=== PATIENT | female | born 1980 | race Caucasian/White ===

== ENCOUNTER 2019-10-31 22:33 | Emergency (ER) | payer OTHER, SELFPAY ==
[2019-10-31 22:34] VITALS: BP 149/86; PULSE 91; RESP 15; TEMP 36.7; O2SAT 98; BMI 37.1
--- NOTE | 2019-10-31 22:52 | ED.VISSUMM ---
- ER Visit Summary Date of Service: 10/31/19 Chief Complaint: Fall History of Present Illness: The patient is a 38 F who presents after a fall that occurred today. Patient states she slipped on ice and fell forward. Patient hit her face. Patient states she has a laceration over the bridge of her nose. Patient denies any loss of consciousness. Patient describes her pain as throbbing. Patient admits to some tingling in her face but denies any weakness. Patient admits to nausea but denies any vomiting. Patient denies any visual changes. Patient does admit to some pain in her neck and back. Physical Examination: Vital signs are stable. Patient is afebrile. Patient is in no acute distress. Pupils are equal, round, and reactive to light bilaterally. Extraocular muscles are intact. Nasal mucosa is pink and moist. There is no septal deviation or septal hematoma. There is a 2 cm full-thickness linear laceration across the bridge of the nose. There is no bony crepitance or step-off. There is mild bleeding. Neck is supple. Trachea is midline. There is no JVD. Heart was regular rate and rhythm. Lungs are clear and equal bilaterally. Cranial nerves II through XII are intact. There are no focal motor or sensory deficits noted. Emergency Department Course and Treatment: The wound was cleaned and irrigated with copious amounts of normal saline. The wound was anesthetized with 1% lidocaine with epinephrine locally. The wound was closed with 5 simple interrupted #6 -0 nylon sutures under sterile technique. Patient tolerated the procedure well. Bacitracin dressing was applied. Patient was instructed to keep the wound clean and dry. Patient was instructed to apply Neosporin twice daily. Patient was instructed to follow-up with her primary care physician in 5 days for wound recheck and suture removal. Patient understood and was agreeable with the plan. All questions were answered. Disposition: Discharge home Impression: Nasal laceration This note was generated with [employer] dictation software. It may contain incorrect words, spelling, and punctuation that were not noted in review of the chart prior to signing ED Disposition - Plan for ED Patient: Disposition: Home or Assisted Living Diagnosis: Nasal laceration Instructions: LACERATION, Face (Suture or Tape) Referrals: Min Hammond MD [Primary Care Provider] - 5 Days for suture removal
[2019-11-01] MEDS: BACITRACIN 15 GM Tube 1 APPLIC TOPICAL (01:02)
[2019-11-01 01:03] VITALS: BP 127/89; PULSE 78; RESP 15; O2SAT 98
== END 2019-11-01 01:05 | disposition home or self-care (01) ==
PROVIDERS: Emergency Provider Emergency Medicine; PCP Family Medicine
DX: S01.21XA Laceration without foreign body of nose, initial encounter (principal); M54.2 Cervicalgia; M54.9 Dorsalgia, unspecified; R20.2 Paresthesia of skin; R11.0 Nausea; W00.0XXA Fall on same level due to ice and snow, initial encounter; Y93.9 Activity, unspecified; Y92.9 Unspecified place or not applicable; Y99.9 Unspecified external cause status; J45.909 Unspecified asthma, uncomplicated; Z72.0 Tobacco use; Z79.899 Other long term (current) drug therapy
CPT/HCPCS: 12011; 99283

== ENCOUNTER 2019-11-02 13:16 | Emergency (ER) | payer OTHER, SELFPAY ==
[2019-11-02 13:17] VITALS: BP 128/94; PULSE 82; RESP 18; TEMP 36.6; O2SAT 98; BMI 36.8
--- NOTE | 2019-11-02 14:12 | CT_ITS ---
STUDY: CT BRAIN WITHOUT CONTRAST REASON FOR EXAM: Female, 38 years old. FALL 2 DAYS AGO, LAC TO NOSE, N/T TO FACE AND ARM RADIATION DOSAGE (If Supplied By Facility): CTDIvol = ( 44.99 ) mGy, DLP = ( 779.24 ) mGycm TECHNIQUE: Transaxial CT imaging of the brain was performed without administration of intravenous contrast material. Individualized dose optimization techniques were used for this CT. COMPARISON: No relevant priors. FINDINGS: Normal soft tissue structures. Normal calvarium. Normal size ventricles and extra-axial spaces for the patient''s age. Normal white matter tracts of the cerebral hemispheres. Normal basal ganglia and thalami. Normal brainstem. Normal cerebellum. There is no intracranial hemorrhage. There are no findings of an acute ischemic infarction. There is an 8.6 mm mucosal polyp or retention cyst along the anterior aspect of the right maxillary sinus. Air-fluid level in the sphenoid sinus. CT/Brain/Head without Contrast IMPRESSION: Air fluid level in the right sphenoid sinus and mucosal thickening with polyp or retention cyst in the anterior right maxillary sinus. Electronically Signed: Luciano Fatima, at 14:37 EST , Service support ,
--- NOTE | 2019-11-02 14:12 | CT_ITS ---
STUDY: CT CERVICAL SPINE WITHOUT CONTRAST REASON FOR EXAM: Female, 38 years old. FALL 2 DAYS AGO, LAC TO NOSE, N/T TO FACE AND ARM RADIATION DOSAGE (If Supplied By Facility): CTDIvol = ( 27.34 ) mGy, DLP = ( 599.06 ) mGycm TECHNIQUE: High resolution transaxial imaging was performed without contrast material. Sagittal and coronal images were reconstructed. Individualized dose optimization techniques were used for this CT. COMPARISON: None FINDINGS: Normal craniovertebral junction. Normal anterior atlantoaxial articulation. Normal odontoid process. There is straightening of the normal cervical lordosis. Normal vertebral bodies and posterior osseous elements. C2-3: Normal endplates. Normal disc height and morphology. Normal central canal and intervertebral neuroforamina. C3-4: Normal endplates. Normal disc height and morphology. Normal central canal and intervertebral neuroforamina. C4-5: Normal endplates. Normal disc height and morphology. Normal central canal and intervertebral neuroforamina. C5-6: Normal endplates. Normal disc height and morphology. Normal central canal and intervertebral neuroforamina. C6-7: Normal endplates. Normal disc height and morphology. Normal central canal and intervertebral neuroforamina. C7-T1: Normal endplates. Normal disc height and morphology. Normal central canal and intervertebral neuroforamina. Normal visualized soft tissue structures. CT/Spine Cervical without Contras IMPRESSION: Normal unenhanced CT examination of the cervical spine. Electronically Signed: Luciano Fatima, at 14:39 EST , Service support ,
--- NOTE | 2019-11-02 14:13 | ED.VIS.GEN ---
History of Present Illness Chief Complaint: Fall Informant: Patient Narrative: Patient is posttrauma day 2 from a fall (slip on ice) in which she struck her face on the ground. She was seen in the emergency department had the nose sutured. She notes some paresthesias to the bilateral maxillary face and now paresthesias of the left arm. She notes her neck is sore and the left shoulder is sore. No vomiting. No neurologic deficits. She went to urgent care and was told to come to emergency room. Past Medical History - Allergies and Home Meds Allergies/Adverse Reactions: Allergies nickel Allergy (Verified 11/02/19 13:17) Rash Primary Care Physician: Min Hammond MD [Primary Care Provider] - Smoking Status: Former smoker Review of Systems General: Denies: Chills, Fever, Sweats Eyes: Denies: Visual changes - bilaterally, Diplopia ENT: Denies: Rhinorrhea, Sore throat Cardiovascular: Denies: Chest pain, Palpitations Respiratory: Denies: Dyspnea, Cough, Dyspnea on exertion Gastrointestinal: Denies: Abdominal pain, Nausea, Vomiting, Diarrhea, Melena, Hematochezia Genitourinary: Denies: Dysuria, Hematuria, Frequency Musculoskeletal: Reports: Neck pain. Denies: Back pain, Extremity Pain Skin: Denies: Rash, Wounds Neurological: Reports: Parasthesia. Denies: Headache, Weakness, Numbness Physical Exam Vital Signs/Narrative: Vital Signs Temp Pulse Resp BP Pulse Ox 11/02/19 13:17 97.8 F 82 18 128/94 H 98 Inital Vital Signs reviewed: Yes General: Well nourished, Well developed, No Acute Distress Head: Normocephalic, Trauma - Healing bridge of nose laceration Eyes: Perrl, EOMI ENT: Moist mucous membranes, No rhinorrhea Neck: - - Palpable paracervical muscle spasm Cardiovascular: Regular rate, Regular rhythm, No murmurs Respiratory: No distress, CTA bilaterally, Chest nontender Abdomen: Soft, Nontender, Nondistended, Normal bowel sounds Back: Nontender, Normal Inspection Extremities: Nontender, No edema Skin: Normal color, No rash Neurological: Alert, Oriented x3, Cranial nerves II-XII grossly intact, Normal Strength, Normal Sensation Psychological: Normal affect, Normal Mood Diagnostic/Tx/Re-eval - Medical Decision Making CT of the head and cervical spine were negative. Patient will be treated conservatively. I will write for some muscle relaxants and would encourage follow-up as needed. ED Disposition - Plan for ED Patient: Disposition: Home or Assisted Living Diagnosis: Facial paresthesia, Cervical strain, acute, Arm paresthesia, left Instructions: Neck Sprain/Strain Prescriptions: cycloBENZAPRine HCl [Flexeril] 10 mg PO TID PRN #15 tab PRN Reason: Muscle Spasm Transmission Status: Pending to [id number] Referrals: Min Hammond MD [Primary Care Provider] - 1 Week if not improving
== END 2019-11-02 15:34 | disposition home or self-care (01) ==
PROVIDERS: Emergency Provider Emergency Medicine; PCP Family Medicine
DX: S16.1XXA Strain of muscle, fascia and tendon at neck level, initial encounter (principal); R20.2 Paresthesia of skin; W00.0XXA Fall on same level due to ice and snow, initial encounter; Y93.9 Activity, unspecified; Y92.9 Unspecified place or not applicable; Y99.9 Unspecified external cause status; Z87.891 Personal history of nicotine dependence
CPT/HCPCS: 70450; 72125; 99282